=== PATIENT | male | born 1940 | race African-American/Black ===

== ENCOUNTER 2016-11-15 12:45 | Day surgery (SDC) | payer MEDICARE, BC ==
[~2016-11-15 12:45] MED LIST: ATAC16TA4; LOTR5CAP3; PRAV40TA
[2016-11-15 14:00] VITALS: BP 129/74; PULSE 71; RESP 16; TEMP 98.2; O2SAT 100
[2016-11-15 15:00] VITALS: BP 155/80; PULSE 68; RESP 18; TEMP 96.7; O2SAT 99
[2016-11-15] MEDS ORDERED: LIDOCAINE HCL 1% PF 30 ML VIAL ONE (15:04)
[2016-11-15 15:15] VITALS: BP 120/78; PULSE 69; RESP 18; O2SAT 100
[2016-11-15 15:30] VITALS: BP 122/70; PULSE 68; RESP 18; O2SAT 100
--- NOTE | 2016-11-15 17:02 | RADRPT ---
EXAM DATE/TIME: 11/15/2016 13:57 [place] COMPARISON: No previous studies available for comparison. INDICATIONS : Left thyroid nodule. MEDICAL HISTORY : Hypertension. Hypercholesterolemia. Left thyroid nodule. Seizures. SURGICAL HISTORY : Hernia repair. ENCOUNTER: Initial ACUITY: 7 - 11 months PAIN SCORE: 0/10 LOCATION: Left neck ORGAN: Left thyroid lobe SPECIMENS: Four fine needle aspirate(s) submitted for pathologic evaluation. DEVICE: 22 gauge needle Post procedure scanning reveals no hematoma or other complication. The possibility does exist that the tissue obtained will be non-diagnostic. If the sample is non-ezekiel gnostic a repeat biopsy or surgical biopsy may need to be performed. TECHNIQUE: 1. Ultrasound guidance for needle biopsy. 2. Needle biopsy. The risks, benefits, and alternatives to ultrasound guided needle biopsy were explained to the patien t in detail including the risk of bleeding and infection. Written and verbal informed consent was ob tained. With the patient on the ultrasound table, images were obtained. Overlying skin was prepped and drape d in the usual sterile fashion and Lidocaine was utilized as a local anesthetic. A needle was advanced into the identified target and the number of specimens as above obtained and meyers bmitted for pathologic evaluation. The patient tolerated the procedure well and left the ultrasound suite in stable condition. CONCLUSION: Uncomplicated ultrasound guided needle biopsy. Jonnie Jackson MD on November 15, 2016 at 16:59 Board Certified Radiologist. This report was verified electronically.
== END 2016-11-15 15:47 | disposition home or self-care (01) ==
LOC: HRAD 12:45 → HRIP 12:46 → HRAD 15:47
PROVIDERS: ATTEND Family Medicine
DX: E04.1 Nontoxic single thyroid nodule (principal); I10 Essential (primary) hypertension; E78.00 Pure hypercholesterolemia, unspecified
CPT/HCPCS: 10022; 76942; 88172; 88173